=== PATIENT | female | born 1980 | race Caucasian/White ===

== ENCOUNTER → 2019-05-29 10:35 | Outpatient (CLI) | payer OTHER, SELFPAY ==
--- NOTE | ~2019-05-29 | MM_ITS ---
EXAMINATION: MM screening [facility] BI w rashaad HISTORY: Screening mammogram TECHNIQUE: Craniocaudal and mediolateral oblique 3-D tomosynthesis images were obtained and synthetic 2-D images were generated. CAD analysis was submitted and interpreted. COMPARISON: 04/18/2018, 03/14/2011, 09/03/2007 BREAST PARENCHYMAL COMPOSITION: The breasts are heterogeneously dense, which may obscure small masses . FINDINGS: There is no evidence of suspicious mass, calcification, or architectural distortion to sugg est malignancy in either breast. There has been no suspicious interval change. IMPRESSION: 1. No mammographic evidence of malignancy. 2. Recommend routine screening mammography in one year. BI-RADS Category 1: Negative Reviewed, dictated and finalized at location A. 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
== END ==
PROVIDERS: Visit Provider Obstetrics & Gynecology
DX: Z12.31 Encounter for screening mammogram for malignant neoplasm of breast (principal)
CPT/HCPCS: 77063; 77067

== ENCOUNTER 2019-09-01 17:06 | Outpatient (CLI) | payer OTHER, SELFPAY ==
--- NOTE | ~2019-09-01 | XR_ITS ---
EXAMINATION: XR cervical spine 4-5V EXAM DATE: 09/01/2019 17:34 INDICATION: Paresthesia of upper limb. TECHNIQUE: Cervical spine frontal, lateral, lateral swimmers, and open-mouth odontoid projections. There is no prior study for comparison. FINDINGS: There is no evidence of acute cervical fracture. The odontoid process is intact. Pre-dens space is normal. Prevertebral soft tissue is normal. There are no soft tissue abnormalities identi fied. The vertebral bodies are aligned. Vertebral body and disc heights are well-maintained. No more than minimal arthropathy. IMPRESSION: Minimal cervical arthropathy. Reviewed, dictated and finalized at location A.
--- NOTE | ~2019-09-01 | XR_ITS ---
EXAMINATION: XR lumbar spine 2-3V EXAM DATE: 09/01/2019 17:34 INDICATION: Paresthesia of upper limb. Lumbar pain. TECHNIQUE: Lumber spine frontal, lateral, lateral L5-S1 projections for interpretation. Comparison is made to prior examination from 12/11/2007. FINDINGS: Minimal thoracolumbar disc disease. Mild lower lumbar facet arthropathy. The vertebral bod ies are aligned in the AP dimension. Vertebral body heights are maintained. Paraspinal soft tissue is unremarkable. There is IUD projecting over the central aspect of the pelvis. Calcifications in the p jose manuel are believed to be phleboliths. IMPRESSION: Mild lower lumbar facet arthropathy. Reviewed, dictated and finalized at location A.
== END 2019-09-01 17:07 | disposition home or self-care (01) ==
LOC: ANHIMG 17:12
PROVIDERS: PCP Nurse Practitioner Family; Visit Provider Nurse Practitioner Family
DX: R20.2 Paresthesia of skin (principal); M54.5 Low back pain; M12.88 Other specific arthropathies, not elsewhere classified, other specified site
CPT/HCPCS: 72050; 72100

== ENCOUNTER → 2020-01-15 12:28 | Outpatient (CLI) | payer OTHER, SELFPAY ==
--- NOTE | ~2020-01-15 | XR_ITS ---
EXAMINATION: XR hand RT min 3V, XR wrist RT min 3V EXAM DATE: 01/15/2020 13:01 INDICATION: No known recent injury provided at this time. Pain of the right hand, wrist. TECHNIQUE: Right hand frontal, lateral and oblique projections obtained and reviewed. Right wrist fro ntal, frontal with ulnar deviation, oblique and lateral projections obtained and reviewed. Correlatio n is made to contralateral hand wrist same date. FINDINGS: Right metacarpal bones are unremarkable. Right wrist scapholunate joint space is maintain ed. There are no bony erosions identified. There are no acute fractures or dislocations identified. There is no subcutaneous gas. The soft tissue is unremarkable. There are no radiopaque foreign mile dies. Joint spaces are uniform, and symmetric to the contralateral side. IMPRESSION: 1. Unremarkable right hand, wrist exam. Reviewed, dictated and finalized at location B. IMPRESSION: 1. Unremarkable right hand, wrist exam.
--- NOTE | ~2020-01-15 | XR_ITS ---
EXAMINATION: XR hand LT min 3V, XR wrist LT min 3V EXAM DATE: 01/15/2020 13:01 INDICATION: No known recent injury provided at this time. Pain of the hands and wrists bilaterally. TECHNIQUE: Left hand frontal, lateral and oblique projections obtained and reviewed. Left wrist fron irwin, frontal with ulnar deviation, oblique and lateral projections obtained and reviewed. There is n o prior study for comparison. FINDINGS: Left metacarpal bones are unremarkable. Left wrist scapholunate joint space is maintained . There are no bony erosions identified. There are no acute fractures or dislocations identified. T here is no subcutaneous gas. The soft tissue is unremarkable. There are no radiopaque foreign bodi es. IMPRESSION: 1. Unremarkable left hand, wrist exam. Reviewed, dictated and finalized at location B. IMPRESSION: 1. Unremarkable left hand, wrist exam.
== END ==
PROVIDERS: PCP Nurse Practitioner Family; Visit Provider Nurse Practitioner Family
DX: M25.531 Pain in right wrist (principal); M25.532 Pain in left wrist
CPT/HCPCS: 73110; 73130

== ENCOUNTER → 2020-07-29 11:22 | Outpatient (CLI) | payer OTHER, SELFPAY ==
--- NOTE | ~2020-07-29 | MM_ITS ---
EXAMINATION: MM screening [facility] BI w rashaad HISTORY: Screening mammogram TECHNIQUE: Craniocaudal and mediolateral oblique 3-D tomosynthesis images were obtained and synthetic 2-D images were generated. CAD analysis was submitted and interpreted. COMPARISON: 05/29/2019, 04/18/2018, 03/11 2011 bilateral digital screening mammogram examinations BREAST PARENCHYMAL COMPOSITION: The breasts are heterogeneously dense, which may obscure small masses . FINDINGS: There is a subtle microcalcifications in the central left breast. Diagnostic left mammogram with magnification views is recommended. Otherwise there is no evidence of suspicious mass, calcification, or architectural distortion to sug gest malignancy in either breast. There has been no other suspicious interval change. IMPRESSION: 1. Subtle microcalcifications, left breast 2. Diagnostic left mammogram with magnification views is recommended BI-RADS Category 0: Incomplete: Needs additional imaging evaluation. Reviewed, dictated and finalized at location A.
== END ==
PROVIDERS: Visit Provider Obstetrics & Gynecology
DX: Z12.31 Encounter for screening mammogram for malignant neoplasm of breast (principal); R92.8 Other abnormal and inconclusive findings on diagnostic imaging of breast
CPT/HCPCS: 77063; 77067

== ENCOUNTER → 2020-08-23 08:39 | Outpatient (CLI) | payer OTHER, SELFPAY ==
--- NOTE | ~2020-08-23 | MMUS_ITS ---
EXAMINATION: MM diagnostic mammo unilat LT, US breast LT complete HISTORY: Follow-up left breast calcifications TECHNIQUE: Additional 3-D tomosynthesis images of the left breast were performed and synthetic 2-D im ages were generated. CAD analysis was submitted and interpreted. High resolution complete left breast ultrasound was performed. COMPARISON: 07/29/2020 BREAST PARENCHYMAL COMPOSITION: The breasts are extremely dense, which lowers the sensitivity of mamm ography. FINDINGS: MAMMOGRAPHIC FINDINGS: There are no suspicious masses, calcifications or architectural distortion in the left breast to sugg est malignancy. There are a few scattered benign-appearing calcifications. ULTRASOUND: Left breast ultrasound, complete: Normal left breast echotexture without focal solid or cystic mass. In the left axilla in the area of described axillary swelling there are normal-appearing lymph nodes, largest measuring 1.2 cm with normal fatty hilum. No suspicious masses to suggest malignancy. IMPRESSION: 1. No evidence for malignancy in the left breast. Benign findings. 2. Routine yearly screening mammogram and regular clinical breast examination are recommended. BI-RADS Category 2: Benign finding(s). Reviewed, dictated and finalized at location A. IMPRESSION: 1. No evidence for malignancy in the left breast. Benign findings. 2. Routine yearly screening mammogram and regular clinical breast examination a re recommended. BI-RADS Category 2: Benign finding(s).
== END ==
PROVIDERS: PCP Nurse Practitioner Family; Visit Provider Obstetrics & Gynecology
DX: R92.8 Other abnormal and inconclusive findings on diagnostic imaging of breast (principal)
CPT/HCPCS: 76641; 77065

== ENCOUNTER 2020-11-02 09:11 | Emergency (ER) | payer OTHER, SELFPAY ==
--- NOTE | ~2020-11-02 | XR_ITS ---
EXAMINATION: XR barium swallow EXAM DATE: 11/02/2020 10:34 INDICATION: Chest pain, hemoptysis, epigastric pain. TECHNIQUE: Standard thick followed by thin contrast barium esophagram examination was performed by Dr Zoran Higgins, radiologist. Pulsed dose reduction fluoroscopy was used with fluoroscopic time of 0.6 minutes. The DAP for this procedure was 0.5 Gycm2. A total of 109 images obtained for the exam. T here is no prior study for comparison. FINDINGS: The pharynx is symmetric and without evidence of mass lesion or mucosal irregularity. Ther e is no esophageal stricture or mass identified. There are no esophageal diverticula. Gastroesophag eal junction is normal in appearance. IMPRESSION: Normal exam. Reviewed, dictated and finalized at location A. IMPRESSION: Normal exam.
--- NOTE | ~2020-11-02 | XR_ITS ---
EXAMINATION: XR chest 1V portable EXAM DATE: 11/02/2020 11:28 INDICATION: Productive cough. TECHNIQUE: Portable AP frontal chest x-ray was obtained. Comparison is made to prior examination from 07/18/2018. FINDINGS: The lungs are clear. There are no pleural effusions. The cardiomediastinal silhouette is within normal limits. There is no pneumothorax suspected. The bones and soft tissues are unremarkab le. IMPRESSION: No acute cardiopulmonary findings. Reviewed, dictated and finalized at location A.
[2020-11-02 09:19] VITALS: BP 137/78; PULSE 66; RESP 16; TEMP 36.2; O2SAT 100
[2020-11-02 09:49] VITALS: BP 132/88; PULSE 74; RESP 18; O2SAT 100
--- NOTE | 2020-11-02 09:57 | ED.GENADULT ---
HPI - General Adult General Chief complaint: Abdominal Pain Stated complaint: DIFF SWALLOWING, EPIGASTRIC PAIN Time Seen by Provider: 11/02/20 09:24 Source: patient and RN notes reviewed Mode of arrival: ambulatory Limitations: no limitations History of Present Illness HPI narrative: Patient is a 40-year-old female who presents to emergency department for evaluation of pain with swallowing began this morning over the last couple of months she has noticed that she has had some discomfort with swallowing this morning she notes that she has tasted some blood which she believes could be from her esophagus. Patient notes history of rheumatoid arthritis and notes that her medications have put her at risk for ulceration. Patient denies any melena rectal bleeding or URI symptoms. She months mild discomfort in the upper mid chest and epigastrium. She took Pepcid prior to arrival. Related Data Home Medications Medication Instructions Recorded Confirmed celecoxib [Celebrex] 200 mg PO BID 11/02/20 escitalopram oxalate [Lexapro] 10 mg PO DAILY 11/02/20 golimumab [Simponi ARIA] 125 mg IV ONCE 11/02/20 pilocarpine HCl 7.5 mg PO ONCE 11/02/20 prednisone 10 mg PO DAILY 11/02/20 Allergies Allergy/AdvReac Type Severity Reaction Status Date / Time No Known Allergies Allergy Verified 11/02/20 09:35 Review of Systems Review of Systems: All systems reviewed & are unremarkable except as noted in HPI and below PMFSH Past Medical History Medical History (Updated 11/02/20 @ 11:59 by Jc Jordan PA-C) Rheumatoid arthritis Surgical History Surgical History H/O colonoscopy Family History Family History (Updated 12/17/13 @ 07:13 by DOCTOR UNKNOWN) Father Family history of rheumatoid arthritis Family history of lung cancer Grandparent Family history of lung cancer Family history of rheumatoid arthritis Other Family history of alcoholism Family history of arthritis Family history of pancreatic cancer Social History Social History Smoking status: Former smoker Smoking end date: 04/22/99 Alcohol intake: current Exam Narrative: Exam Narrative: GENERAL: Well-appearing, well-nourished, and in no acute distress. HEAD: Normocephalic, atraumatic. EYES: PERRLA and EOMI. ENT: Nares clear, no rhinorrhea or epistaxis. Mucous membranes moist. CHEST: Clear to auscultation. No respiratory distress. No wheezes rales or rhonchi HEART: Regular rate and rhythm. No murmur heard. Normal peripheral pulses. ABDOMEN: Soft, mild epigastric tenderness no rebound or guarding, nondistended, normal active bowel sounds. EXTREMITIES: Normal range of motion. No edema. SKIN: Warm, dry, no rash. NEURO: No focal deficits. Alert and oriented x3. PSYCH: Normal mood and affect. Course Course Emergency Course: Patient evaluated in the emergency department for dysphagia and possible esophageal complication. ABCs and vital signs intact and stable patient aware of her case findings treatment plan diagnosis she notes she will begin taking omeprazole. And she will follow up with her chassis inspector will return if symptoms worsen. 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
[2020-11-02] MEDS: PANTOPRAZOLE SODIUM IV 40 MG VIAL IV PUSH (10:04)
[2020-11-02] MEDS: SODIUM CHLORIDE 0.9% IV 1,000 ML 999 ML IV CONT (10:04)
[2020-11-02 10:14] LABS: Basophils Absolute Auto 0.1 K/mm3 (0.0-0.1); Basophils Percent Auto 0.8 % (0.2-1.2); Eosinophils Absolute Auto 0.1 K/mm3 (0-0.3); Eosinophils Percent Auto 0.5 % (0-4.4); Hematocrit 47.7 % (37.0-47.0); Immature Granulocyte Absolute 0.03 K/mm3 (0.00-0.031); Immature Granulocyte Percent A 0.3 % (0-0.5); Lymphocytes Absolute Auto 1.84 K/mm3 (0.9-3.2); Lymphocytes Percent Auto 18.2 % (18.3-44.2); Mean Corpuscular HGB Conc 33.5 g/dl (32-36); Mean Corpuscular Hemoglobin 31.7 pg (26-34); Mean Corpuscular Volume 94.6 fl (80-100); Monocytes Absolute Auto 0.7 K/mm3 (0.1-0.6); Monocytes Percent Auto 7.3 % (2.6-8.5); Neutrophils Absolute Auto 7.4 K/mm3 (1.3-6.7); Neutrophils Percent Auto 72.9 % (45.5-73.1); Platelet Count Result 362 k/mm3 (150-375); Red Blood Count 5.04 M/mm3 (4.2-5.4); Red Cell Distribution Width 13.2 % (11.5-14.5); White Blood Count 10.1 K/mm3 (4.5-10.0)
[2020-11-02 10:16] LABS: Add Urine Microscopic? NO; Appearance Urine Clear (Clear); Bilirubin Urine Negative (Negative); Blood Urine Negative (Negative); Color Urine Colorless (Yellow); Glucose Urine UA Negative (Negative); Ketones Urine Negative (Negative); Leukocyte Esterase Ur Negative LEU/UL (Negative); Nitrate Urine Negative (Negative); Protein Urine Negative (Negative); Urobilinogen Urine Negative mg/dL (<2.0)
[2020-11-02 10:24] LABS: Alanine Aminotransferase 24 U/L (4-35); Albumin Level 4.9 g/dL (3.5-5.1); Alkaline Phosphatase 58 U/L (38-126); Anion Gap 10 mmol/L (8-16); Aspartate Amino Transferase 35 U/L (14-36); Bilirubin,Total 0.5 mg/dL (0.2-1.3); Blood Urea Nitrogen 9 mg/dL (7-17); Calcium 9.9 mg/dL (8.4-10.2); Carbon Dioxide 26 mmol/L (22-30); Chloride 102 mmol/L (98-107); Estimated CRCL calculation 88 ml/min; Estimated Glomerular Filt Rate > 60; Glucose 92 mg/dL (65-105); Lipase 119 U/L (23-300); Potassium 3.8 mmol/L (3.4-5.0); Sodium 138 mmol/L (137-145)
[2020-11-02 10:25] LABS: Specific Grav Ur 1.003 (1.001-1.035)
[2020-11-02 11:08] VITALS: BP 122/75; PULSE 63; RESP 18; O2SAT 97
[2020-11-02 12:13] VITALS: BP 141/83; PULSE 78; RESP 20; O2SAT 98
== END 2020-11-02 12:17 | disposition home or self-care (01) ==
PROVIDERS: Emergency Medicine Emergency Medical Services; Emergency Provider Emergency Medicine; PCP Nurse Practitioner Family
DX: R13.10 Dysphagia, unspecified (principal); R04.2 Hemoptysis; M06.9 Rheumatoid arthritis, unspecified; Z87.891 Personal history of nicotine dependence
CPT/HCPCS: 36415; 71045; 74220; 80053; 81003; 81025; 83690; 85025; 96361; 96374; 99284; C9113; J7030

== ENCOUNTER 2020-11-22 00:54 | Day surgery (SDC) | payer OTHER, SELFPAY ==
[2020-11-16 15:15] VITALS: BMI 29.1
[2020-11-22 10:48] VITALS: BP 133/80; PULSE 64; RESP 18; TEMP 36.3; O2SAT 100; BMI 28.0
--- NOTE | 2020-11-22 11:02 | WPDGICN ---
Assessment and Plan Assessment and plan (1) Epigastric abdominal pain: Code(s): R10.13 - Epigastric pain Status: Acute Assessment and Plan: patient with relatively recent epigastric pain and dysphagia. Plan is for EGD to exclude gastritis or esophageal narrowing. Continuing PPI and avoiding nonsteroidal anti-inflammatory agents appear prudent initially. Further recommendations will be given after endoscopy. (2) Dysphagia: Code(s): R13.10 - Dysphagia, unspecified Status: Acute GI Consult Note Consult date/time: 11/22/20 11:02 HPI: Cheryle Zepeda is a 40 year old female Complains of epigastric pain dysphagia. Patient has underlying history of rheumatoid arthritis. She does receive infusion therapy but also requires Celebrex. Previously was on methotrexate. Patient reports over the last 1 month has had epigastric and substernal discomfort. She feels the taste of blood in her throat occasional regurgitation. Over the last month she has had some difficulty swallowing with food catching in the mid substernal portion of the chest. Barium swallow recently performed was unremarkable. Celebrex has been held on the concern of possible ulcer disease gastritis or esophagitis. patient presents today for an EGD. Review of Systems Review of Systems: All systems reviewed & are unremarkable except as noted in HPI and below PMFSH Past Medical History Medical History (Updated 11/22/20 @ 11:05 by Edward Renteria MD) Rheumatoid arthritis Surgical History Surgical History H/O colonoscopy Family History Family History (Updated 12/17/13 @ 07:13 by DOCTOR UNKNOWN) Father Family history of rheumatoid arthritis Family history of lung cancer Grandparent Family history of lung cancer Family history of rheumatoid arthritis Other Family history of alcoholism Family history of arthritis Family history of pancreatic cancer Social History Social History Years smoked: 3 Smoking status: Former smoker Smoking end date: 04/22/99 Alcohol intake: current Drinks per week: 3 Substance use: never Substance use type: does not use Living arrangements: alone Spiritual care concerns: No Meds Home Medications and Allergies Home Medications Medication Instructions Recorded Confirmed Type celecoxib [Celebrex] 200 mg PO DAILY 11/02/20 11/16/20 History escitalopram oxalate [Lexapro] 10 mg PO DAILY 11/02/20 11/16/20 History golimumab [Simponi ARIA] 125 mg IV [id number] 11/02/20 11/16/20 History prednisone 10 mg PO DAILY PRN 11/02/20 11/16/20 History ryxpuoxv-znl-vgpp-FA-lutein 1 tablet PO DAILY 11/16/20 11/16/20 History [Centrum Silver Women] omeprazole 40 mg PO DAILY 11/16/20 11/16/20 History Allergies Allergy/AdvReac Type Severity Reaction Status Date / Time No Known Allergies Allergy Verified 11/22/20 10:43 Vital Signs Vital Signs - 24 hr 11/22/20 10:48 Temperature 97.3 F L Pulse Rate 64 Respiratory Rate 18 Blood Pressure 133/80 Pulse Oximetry 100 Exam Narrative: Physical exam reveals patient to be alert. Vital signs stable. HEENT exam is unremarkable. Patient is anicteric. Lungs are clear to auscultation and percussion. Heart is without murmur or extra sounds. Abdominal exam bowel sounds are present soft nontender with no organomegaly.
[2020-11-22] MEDS: LACTATED RINGERS 1,000 ML 150 ML IV CONT (11:03)
--- NOTE | 2020-11-22 11:11 | WPDANESEPPF ---
Anes - Initial Pre Proc Eval Procedure: Operation Date: 11/22/20 12:00 Proposed Procedures p Esophagogastroduodenoscopy - Edward Renteria MD Date/Time: 11/22/20 11:11 Surgeon: Edward Renteria MD Pre Op Diagnosis: gastritis Patient Data Age: 40 Gender: F Height: 1.55 m Weight: 67.5 kg Last Vital Signs Temp 36.3 C L 11/22/20 10:48 Pulse 64 11/22/20 10:48 Resp 18 11/22/20 10:48 BP 133/80 11/22/20 10:48 Pulse Ox 100 11/22/20 10:48 Allergies Allergy/AdvReac Type Severity Reaction Status Date / Time No Known Allergies Allergy Verified 11/22/20 10:43 Home Medications Medication Instructions Recorded Confirmed Type celecoxib [Celebrex] 200 mg PO DAILY 11/02/20 11/16/20 History escitalopram oxalate [Lexapro] 10 mg PO DAILY 11/02/20 11/16/20 History golimumab [Simponi ARIA] 125 mg IV [id number] 11/02/20 11/16/20 History prednisone 10 mg PO DAILY PRN 11/02/20 11/16/20 History reeflbyp-ivs-rhbx-FA-lutein 1 tablet PO DAILY 11/16/20 11/16/20 History [Centrum Silver Women] omeprazole 40 mg PO DAILY 11/16/20 11/16/20 History Patient hx anesthesia problems: none Family hx anesthesia problems: none PMFSH Past Medical History Medical History (Updated 11/22/20 @ 11:05 by Edward Renteria MD) Rheumatoid arthritis Surgical History Surgical History H/O colonoscopy Family History Family History (Updated 12/17/13 @ 07:13 by DOCTOR UNKNOWN) Father Family history of rheumatoid arthritis Family history of lung cancer Grandparent Family history of lung cancer Family history of rheumatoid arthritis Other Family history of alcoholism Family history of arthritis Family history of pancreatic cancer Social History Social History Years smoked: 3 Smoking status: Former smoker Smoking end date: 04/22/99 Alcohol intake: current Drinks per week: 3 Substance use: never Substance use type: does not use Living arrangements: alone Spiritual care concerns: No Anes - Eval Final PreProcedure Day of Procedure 11/22/20 11:11 Patient weight: overweight Heart: regular rate and rhythm Lungs: clear to auscultation and normal air movement Airway: Mallampati scale class II Neurological: alert and oriented Last oral intake: >/= 8 hours ASA classification: II Emergent: no Anesthetic plan: proceed Anesthesia type and monitoring: general GIVS Informed Consent: The patient's anesthetic plan and its attendant risks and benefits were discussed with the patient/family/POA. Questions were solicited and answers provided to the satisfaction of the patient/family/POA.
[2020-11-22 11:46] VITALS: BP 108/62; PULSE 67; RESP 24; O2SAT 100
[2020-11-22 11:56] VITALS: BP 125/78; PULSE 59; RESP 17; O2SAT 100
[2020-11-22 12:06] VITALS: BP 137/80; PULSE 53; RESP 17; O2SAT 100
== END 2020-11-22 12:16 | disposition home or self-care (01) ==
PROVIDERS: PCP Nurse Practitioner Family; Visit Provider Internal Medicine Gastroenterology
PROC: 0DJ08ZZ Inspection of Upper Intestinal Tract, Via Natural or Artificial Opening Endoscopic (ICD-10-PCS; CPT 43235; principal; 2020-11-22 12:00)
DX: R13.19 Other dysphagia (principal); R10.13 Epigastric pain; Z87.891 Personal history of nicotine dependence; M06.9 Rheumatoid arthritis, unspecified
CPT/HCPCS: 43239; 43450; 87081; J2704; J7120

== ENCOUNTER → 2023-02-08 11:20 | Outpatient (CLI) | payer OTHER, SELFPAY ==
--- NOTE | ~2023-02-08 | MM_ITS ---
EXAMINATION: MM screening [facility] BI w rashaad HISTORY: Screening TECHNIQUE: Craniocaudal and mediolateral oblique 3-D tomosynthesis images were obtained and synthetic 2-D images were generated. CAD analysis was submitted and interpreted. COMPARISON: Comparison to multiple prior studies sequentially, with oldest reviewed study dated 03/23. BREAST PARENCHYMAL COMPOSITION: The breasts are heterogeneously dense, which may obscure small masses FINDINGS: There is no evidence of suspicious mass, calcification, or architectural distortion to sugg est malignancy in either breast. There has been no suspicious interval change. IMPRESSION: 1. No mammographic evidence of malignancy. 2. Recommend routine screening mammography in one year. BI-RADS Category 1: Negative Reviewed, dictated and finalized at location A.
== END ==
PROVIDERS: PCP Nurse Practitioner Adult Health; Visit Provider Obstetrics & Gynecology
DX: Z12.31 Encounter for screening mammogram for malignant neoplasm of breast (principal)
CPT/HCPCS: 77063; 77067

== ENCOUNTER 2023-07-01 10:24 | Outpatient (CLI) | payer OTHER, SELFPAY ==
--- NOTE | ~2023-07-01 | XR_ITS ---
EXAMINATION: XR chest 2V DATE: 07/01/2023 10:39 INDICATION: Bronchitis, not specified as acute or chronic. TECHNIQUE: Frontal and lateral views of the chest were obtained. COMPARISON: Chest single view 09/20/2022 FINDINGS: There is no pneumonia, pleural effusion, or pneumothorax. The heart size is normal. Surgica l clips in the right upper quadrant are likely from cholecystectomy. IMPRESSION: 1. No acute cardiopulmonary disease. Reviewed, dictated and finalized at location A.
== END 2023-07-01 10:25 | disposition home or self-care (01) ==
LOC: ANHIMG 10:27
PROVIDERS: PCP Nurse Practitioner Family; Visit Provider Family Medicine
DX: J40 Bronchitis, not specified as acute or chronic (principal)
CPT/HCPCS: 71046

== ENCOUNTER 2023-10-21 06:59 | Outpatient (CLI) | payer OTHER, SELFPAY ==
[2023-10-21 19:40] LABS: Hematocrit 43.6 % (37.0-47.0); Hemoglobin 14.2 g/dL (12.0-15.0); Mean Corpuscular HGB Conc 32.6 g/dl (32-36); Mean Corpuscular Hemoglobin 31.8 pg (26-34); Mean Corpuscular Volume 97.5 fl (80-100); Mean Platelet Volume 9.4 fl (7.4-10.4); Platelet Count Result 426 k/mm3 (150-375); Red Blood Count 4.47 M/mm3 (4.2-5.4); Red Cell Distribution Width 13.3 % (11.5-14.5); White Blood Count 7.6 K/mm3 (4.5-10.0)
[2023-10-21 20:02] LABS: Vitamin D 25 Hydroxy 42.8 ng/mL
[2023-10-21 20:37] LABS: Erythrocyte Sedimentation Rate 6 mm/hr (0-20)
[2023-10-21 20:40] LABS: Alanine Aminotransferase 22 U/L (6-35); Albumin Level 4.7 g/dL (3.5-5.1); Alkaline Phosphatase 60 U/L (38-126); Anion Gap 6 mmol/L (4-12); Aspartate Amino Transferase 84 U/L (14-36); Bilirubin,Total 0.9 mg/dL (0.2-1.3); Blood Urea Nitrogen 11 mg/dL (7-17); Calcium 9.7 mg/dL (8.4-10.2); Carbon Dioxide 28 mmol/L (22-30); Chloride 102 mmol/L (98-107); Cholesterol 176 mg/dL (0-200); Estimated Glomerular Filt Rate > 60; Glucose 84 mg/dL (65-110); HDL Direct 86 mg/dL; Sodium 136 mmol/L (137-145); Triglycerides 85 mg/dL (<150)
[2023-10-21 20:51] LABS: LDL Cholesterol Direct 78 mg/dL
[2023-10-21 20:52] LABS: Hemoglobin A1C 4.7 % (<5.7)
== END 2023-10-21 07:00 | disposition home or self-care (01) ==
PROVIDERS: PCP Nurse Practitioner Family; Visit Provider Nurse Practitioner Family
DX: Z13.0 Encounter for screening for diseases of the blood and blood-forming organs and certain disorders involving the immune mechanism (principal); Z13.1 Encounter for screening for diabetes mellitus; Z13.220 Encounter for screening for lipoid disorders; E55.9 Vitamin D deficiency, unspecified; I01.1 Acute rheumatic endocarditis; Z13.29 Encounter for screening for other suspected endocrine disorder
CPT/HCPCS: 36415; 80053; 80061; 82306; 83036; 84443; 85027; 85652

== ENCOUNTER 2024-02-14 10:08 | Outpatient (CLI) | payer OTHER, SELFPAY ==
--- NOTE | ~2024-02-14 | MM_ITS ---
EXAMINATION: MM screening [facility] BI w rashaad HISTORY: Screening TECHNIQUE: Craniocaudal and mediolateral oblique 3-D tomosynthesis images were obtained and synthetic 2-D images were generated. CAD analysis was submitted and interpreted. COMPARISON: Comparison to multiple prior studies sequentially, with oldest reviewed study dated 12/2020. BREAST PARENCHYMAL COMPOSITION: Dense: The breasts are heterogeneously dense, which may obscure small masses FINDINGS: There is a developing asymmetry medial aspect of the left breast on CC view, middle third. The right breast is stable without evidence for malignancy. IMPRESSION: 1. Developing left breast asymmetry. 2. Additional mammographic views and possible breast ultrasound are recommended. BI-RADS Category 0: Incomplete: Needs additional imaging evaluation. Reviewed, dictated and finalized at location B. IMPRESSION: 1. Developing left breast asymmetry. 2. Additional mammographic views and possible breast ultrasound are recommended . BI-RADS Category 0: Incomplete: Needs additional imaging evaluation.
== END 2024-02-14 10:09 | disposition home or self-care (01) ==
PROVIDERS: PCP Obstetrics & Gynecology; Visit Provider Obstetrics & Gynecology
DX: Z12.31 Encounter for screening mammogram for malignant neoplasm of breast (principal); R92.8 Other abnormal and inconclusive findings on diagnostic imaging of breast
CPT/HCPCS: 77063; 77067

== ENCOUNTER 2024-03-06 10:19 | Outpatient (CLI) | payer OTHER, SELFPAY ==
--- NOTE | ~2024-03-06 | MM_ITS ---
EXAMINATION: MM diagnostic [facility] LT w rashaad HISTORY: Left breast asymmetry TECHNIQUE: Additional 3-D tomosynthesis images of the left breast were performed and synthetic 2-D im ages were generated. CAD analysis was submitted and interpreted. COMPARISON: 02/14/2024, 02/08/2023 BREAST PARENCHYMAL COMPOSITION:Dense: The breasts are heterogeneously dense, which may obscure small masses. FINDINGS: The left breast asymmetry effaces with spot compression. No persistent mass lesion or disto rtion seen. No suspicious microcalcifications. IMPRESSION: No mammographic evidence for malignancy. BI-RADS Category 1: Negative Reviewed, dictated and finalized at location . 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
== END 2024-03-06 10:20 | disposition home or self-care (01) ==
LOC: ANHIMG 10:20
PROVIDERS: PCP Obstetrics & Gynecology; Visit Provider Obstetrics & Gynecology
DX: R92.8 Other abnormal and inconclusive findings on diagnostic imaging of breast (principal)
CPT/HCPCS: 77061; 77065; G0279

== ENCOUNTER 2024-05-15 01:23 | Day surgery (SDC) | payer OTHER, SELFPAY ==
[2024-05-01 14:38] VITALS: BMI 25.4
[2024-05-15 10:09] VITALS: BP 107/73; PULSE 68; RESP 18; TEMP 36.7; O2SAT 100
[2024-05-15 10:15] LABS: BEDSIDEPREGUCG Negative (Negative)
--- NOTE | 2024-05-15 10:15 | P.PNAN_ITS ---
Anes - Initial Pre Proc Eval Procedure: Operation Date: 05/15/24 11:30 Proposed Procedures p Screening Colonoscopy - Bertram Ramirez MD Date/Time: 05/15/24 10:15 Surgeon: Bertram Ramirez MD Pre Op Diagnosis: Screening colon Patient Data Age: 44 Gender: F Height: 1.52 m Weight: 58.3 kg Last Vital Signs Temp 36.7 C 05/15/24 10:09 Pulse 68 05/15/24 10:09 Resp 18 05/15/24 10:09 BP 107/73 05/15/24 10:09 Pulse Ox 100 05/15/24 10:09 O2 Del Method Room Air 05/15/24 10:09 Allergies Allergy/AdvReac Type Severity Reaction Status Date / Time azithromycin AdvReac Mild Nausea and Verified 05/15/24 10:09 Vomiting Home Medications ?Medication ?Instructions ?Recorded ?Confirmed ?Type yywbsvpm-tlgs-xeab 8 mg-folic 400 1 tablet PO DAILY 11/16/20 05/01/24 History mcg-K 50 mcg-lutein 300 mcg tablet (Centrum Silver Women) docusate sodium 100 mg capsule 100 mg PO BID 10/18/23 05/01/24 History (Stool Softener) escitalopram oxalate 20 mg tablet 20 mg PO DAILY #90 tabs 10/18/23 05/01/24 Rx levonorgestrel (Mirena) 1 device intrauterine ONCE 10/18/23 05/01/24 History valacyclovir 1 gram tablet 1,000 mg PO Q12H #90 tabs 10/18/23 05/01/24 Rx aspirin 81 mg tablet,delayed 81 mg PO DAILY #90 tabs 10/22/23 05/01/24 Rx release bupropion HCl 150 mg 24 hr tablet, 150 mg PO QAM #90 tabs 12/19/23 05/01/24 Rx extended release (Wellbutrin XL) Laboratory Tests 05/15/24 10:12 POC Urine HCG, Qual Negative (Negative) Patient hx anesthesia problems: none Family hx anesthesia problems: none Results Review: All pre-operative results and documents have been reviewed as part of the pre- operative evaluation. [facility] Past Medical History Medical History (Updated 10/22/23 @ 07:31 by Gloria Ortiz APRN) Melanoma Hypercalcemia GLORIA (generalized anxiety disorder) Arthropathy Anxiety Rheumatoid arthritis Surgical History Surgical History H/O colonoscopy Family History Family History (Updated 10/18/23 @ 09:30 by Liv Butler MA) Father Family history of rheumatoid arthritis Family history of lung cancer Heart disease Grandparent Family history of lung cancer Family history of rheumatoid arthritis Mother Depression Thyroid disease Other Family history of alcoholism Family history of arthritis Family history of pancreatic cancer Social History Social History (Updated 10/18/23 @ 09:33 by Liv Butler MA) Years smoked: 2 Smoking status: Former smoker Tobacco type: cigarettes Smoking end date: 04/22/19 Alcohol intake: current Drinks per week: 2 Substance use: never Substance use type: does not use Do You Feel Safe in your Home?: Yes Lack of Transportation: No Lack of Food: Never True Current Housing: I Do Not Have Housing Concerned About Future Housing: No Difficulty Paying Gas/Electric Bills: No Difficulty Paying for Meds: No Currently Unemployed: No Education: Master's Degree or Higher Difficulty w/ Childcare or Family Care: No Living arrangements: with family Occupation/Education: occupation 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 Informed Consent: The patient's anesthetic plan and its attendant risks and benefits were discussed with the patient/family/POA. Questions were solicited and answers provided to the satisfaction of the patient/family/POA.
[2024-05-15] MEDS: LACTATED RINGERS 1,000 ML 150 ML IV CONT (10:21)
--- NOTE | 2024-05-15 10:43 | PM.HPGS ---
History of Present Illness History of Present Illness Consent: Risks, benefits, and alternatives have been discussed and questions answered. Patient agrees to proceed with procedure. Chief complaint: Screening colon Narrative: Cheryle Zepeda is a 44 year old female here for screening colonoscopy, had one about 10 years ago Review of Systems Review of Systems: All systems reviewed & are unremarkable except as noted in HPI and below PMFSH Past Medical History Medical History (Updated 05/15/24 @ 10:44 by Bertram Ramirez MD) Colon cancer screening Melanoma Hypercalcemia GLORIA (generalized anxiety disorder) Arthropathy Anxiety Rheumatoid arthritis Surgical History Surgical History H/O colonoscopy Family History Family History (Updated 10/18/23 @ 09:30 by Liv Butler MA) Father Family history of rheumatoid arthritis Family history of lung cancer Heart disease Grandparent Family history of lung cancer Family history of rheumatoid arthritis Mother Depression Thyroid disease Other Family history of alcoholism Family history of arthritis Family history of pancreatic cancer Social History Social History (Updated 10/18/23 @ 09:33 by Liv Butler MA) Years smoked: 2 Smoking status: Former smoker Tobacco type: cigarettes Smoking end date: 04/22/19 Alcohol intake: current Drinks per week: 2 Substance use: never Substance use type: does not use Do You Feel Safe in your Home?: Yes Lack of Transportation: No Lack of Food: Never True Current Housing: I Do Not Have Housing Concerned About Future Housing: No Difficulty Paying Gas/Electric Bills: No Difficulty Paying for Meds: No Currently Unemployed: No Education: Master's Degree or Higher Difficulty w/ Childcare or Family Care: No Living arrangements: with family Occupation/Education: occupation 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[employer] Gender identity (if verbalized by the patient): Female Spiritual care concerns: No Meds Home Medications and Allergies Home Medications ?Medication ?Instructions ?Recorded ?Confirmed ?Type iwhrihjd-raow-hqug 8 mg-folic 400 1 tablet PO DAILY 11/16/20 05/01/24 History mcg-K 50 mcg-lutein 300 mcg tablet (Centrum Silver Women) docusate sodium 100 mg capsule 100 mg PO BID 10/18/23 05/01/24 History (Stool Softener) escitalopram oxalate 20 mg tablet 20 mg PO DAILY #90 tabs 10/18/23 05/01/24 Rx levonorgestrel (Mirena) 1 device intrauterine ONCE 10/18/23 05/01/24 History valacyclovir 1 gram tablet 1,000 mg PO Q12H #90 tabs 10/18/23 05/01/24 Rx aspirin 81 mg tablet,delayed 81 mg PO DAILY #90 tabs 10/22/23 05/01/24 Rx release bupropion HCl 150 mg 24 hr tablet, 150 mg PO QAM #90 tabs 12/19/23 05/01/24 Rx extended release (Wellbutrin XL) Allergies Allergy/AdvReac Type Severity Reaction Status Date / Time azithromycin AdvReac Mild Nausea and Verified 05/15/24 10:09 Vomiting Vital Signs Vital Signs - 24 hr 05/15/24 10:09 Temperature 98.1 F Pulse Rate 68 Respiratory Rate 18 Blood Pressure 107/73 Pulse Oximetry 100 Oxygen Delivery Room Air Exam Const: General: comfortable and no acute distress HENMT: Face/Nose/Sinus: Normal nares present Eyes: General: appearance normal, both eyes and all related structures Neck: Neck: no JVD Resp: Auscultation: clear to auscultation bilaterally Cardio: Rate: regular rate Rhythm: regular rhythm GI: Inspection: non-distended GI Palp: Yes Soft to palpation Skin: General skin exam: normal color Neuro: General: gait normal Speech: normal speech Extrem: General: normal to inspection Psych: Mental Status: mental status grossly normal Assessment and Plan Assessment and plan (1) Colon cancer screening: Code(s): Z12.11 - Encounter for screening for malignant neoplasm of colon Status: Acute Assessment and Plan: colonoscopy
[2024-05-15 11:03] VITALS: BP 127/48; PULSE 66; RESP 21; O2SAT 100
[2024-05-15 11:13] VITALS: BP 104/66; PULSE 53; RESP 16; O2SAT 100
[2024-05-15 11:23] VITALS: BP 109/68; PULSE 53; RESP 20; O2SAT 100
== END 2024-05-15 11:33 | disposition home or self-care (01) ==
PROVIDERS: Anesthesiology; PCP Nurse Practitioner Family; Visit Provider Internal Medicine Gastroenterology
PROC: 0DJD8ZZ Inspection of Lower Intestinal Tract, Via Natural or Artificial Opening Endoscopic (ICD-10-PCS; CPT 45378; principal; 2024-05-15 11:30)
DX: Z12.11 Encounter for screening for malignant neoplasm of colon (principal); K64.8 Other hemorrhoids; E83.52 Hypercalcemia; F41.9 Anxiety disorder, unspecified; M06.9 Rheumatoid arthritis, unspecified; Z79.82 Long term (current) use of aspirin; Z87.891 Personal history of nicotine dependence; Z85.820 Personal history of malignant melanoma of skin; Z80.1 Family history of malignant neoplasm of trachea, bronchus and lung; Z80.0 Family history of malignant neoplasm of digestive organs; Z82.49 Family history of ischemic heart disease and other diseases of the circulatory system
CPT/HCPCS: 45378; J2003; J2704; J7120

== ENCOUNTER 2024-07-06 07:09 | Outpatient (CLI) | payer OTHER, SELFPAY ==
--- NOTE | ~2024-07-06 | XR_ITS ---
Right Forearm AP and lateral views of the right forearm were performed. Clinical History: Status post fall Findings: No fracture or dislocation is seen. Osseous alignment in anatomic. Joint spaces are prese rved. Soft tissues are unremarkable. Impression: Unremarkable exam. Reviewed, dictated and finalized at location . Impression: Unremarkable exam.
--- NOTE | ~2024-07-06 | XR_ITS ---
Left wrist Technique: PA, oblique, lateral, and ulnar deviation views were obtained. Clinical History: Pain Findings: Questionable minimal cortical step-off of the distal radius dorsally.. Osseous alignment is anatomic. Joint spaces are preserved. Soft tissues are unremarkable. Impression: Questionable nondisplaced very subtle transverse fracture the distal radius. Reviewed, dictated and finalized at location . Impression: Questionable nondisplaced very subtle transverse fracture the distal radius.
--- NOTE | ~2024-07-06 | XR_ITS ---
Right wrist Technique: PA, oblique, lateral, and ulnar deviation views were obtained. Clinical History: Pain Findings: No acute fracture or dislocation is seen. Osseous alignment is anatomic. Joint spaces are p reserved. Soft tissues are unremarkable. Impression: Unremarkable right wrist radiographs. Reviewed, dictated and finalized at location . Impression: Unremarkable right wrist radiographs.
--- OUTSIDE RECORDS SUMMARY | 2024-07-06 07:14 | XMS_ITS ---
Author Organization [facility] Address [address] [facility] [address] [place] [address] Care Team Providers Care Associate Merchandiser Name Role Phone Angel BOSTON, Gloria Primary Care Provider Unavail able ErasmoAlessandra Unavailable [phone] zzzzMigration, zzzzProvider Unavailable Unav ailable Allergies No Known Allergies REASON FOR VISIT [facility] Medications Medication SIG (Take, Route, Frequency, Duration) Notes Start Date End Date Status Lexapro 5 MG take 1 tablet (5 mg) by oral route once daily Oral 1 Active Vitamin D (Ergocalciferol) 64005 UNIT take 1 capsule (50,000 unit) by oral route once weekly for 30 days Oral 0.005779902652170 for 30 Active EQL [place] 3 Fish Oil 1000 MG prn Oral Active Encounters Encounter Location Date Provider Diagnosis [facility] [address] [facility] [address] [place] [address] 02/10/2023 zzzzProvider zzzzMigration Plan Of Treatment No Information Progress Notes * Cheryle ZEPEDA:1979 (44 yo F)Acc No.[id number]:02/10/2023 Patient: Linette Cheryle CUETO :1980 A ge:42 Y S ex:Female Address:[facility] [address] Subjective: * Chief Complaints: * E MR-Chinedu * Medical History: * Surgical History: S inus Surgery; [id number] cyst removal; 5180-14-90hdabishvajkagnq; 7480-38-20Ptmkuv Repair; 6294-04-04Djmmsoyg surgery; 2018-06-19 * Hospitalization/Major Diagno stic Procedure: * Family History: M igrated Family History: Crohn's Disease , Lung Cancer , lupus , Rheumatoid Arthritis , Thyroid Disorder . * Social History: M igrated Social History: M igrated Social History: :: Never smoker. * Medications: T akingVitamin D (Ergocalciferol) 32275 UNIT Capsule take 1 capsule (50,000 unit) by oral route once weekly for 30 days Oral [id number] EQL [place] 3 Fish Oil 1000 MG Capsule Delayed Release prn Oral Lexapro 5 MG Tablet take 1 tablet (5 mg) by oral route once daily Oral 1 Taking Vitamin D (Ergocalciferol) 67042 UNIT Capsule take 1 capsule (50,000 unit) by oral route once weekly for 30 days Oral 0.064304047231663 Taking EQL [place] 3 Fish Oil 1000 MG Capsule Delayed Release prn Oral Taking Lexapro 5 MG Tablet take 1 tablet (5 mg) by oral route once daily Oral 1 * Allergies: N .K.D.A.no[Allergies Verified] Objective: * Vitals: * Physical Examination: Assessment: Plan: * Treatment: * Procedure Codes: * * Date:
--- OUTSIDE RECORDS SUMMARY | 2024-07-06 07:14 | XMS_ITS | Patient Health Record ---
Author Organization [facility] Address [address] [facility] [address] [place] [address] Care Team Providers Care Microfilm Equipment Inspector Name Role Phone Angel BOSTON, Gloria Primary Care Provider Unavail able Alessandra Zimmerman Unavailable [phone] Allergies No Known Allergies Reason For Referral No Information Medications Medication SIG (Take, Route, Frequency, Duration) Notes Start Date End Date Status Lexapro 5 MG take 1 tablet (5 mg) by oral route once daily Oral 1 Active Vitamin D (Ergocalciferol) 58995 UNIT take 1 capsule (50,000 unit) by oral route once weekly for 30 days Oral [id number] for 30 Active EQL [place] 3 Fish Oil 1000 MG prn Oral Active Plan Of Treatment No Information Insurance Providers Payer Name Payer Address Payer Phone Subscriber Number Group Number Insured Name Patient Relationship to Insured Coverage Start Date Coverage End Date Aetna - Commercial [address] [place] [address] [id number] Cheryle Zepeda Self - patient is the insured 9 Aetna - Choice/OA [address] [place] [address] [id number] Cheryle Zepeda Self - patient is the insured Medical (General) History Surgical History Surgery Date(Month/Year) Sinus Surgery; 2018-06-19 Hernia Repair; 2018-06-19 cholecystectomy; 2018-06-19 Ovarian cyst removal; 2018-06-19 Shoulder surgery; 2018-06-19
--- OUTSIDE RECORDS SUMMARY | 2024-07-06 07:14 | XMS_ITS ---
Author Organization [facility] Address [address] [facility] [address] [place] [address] Care Team Providers Care Oil Gas And Pipe Tester Name Role Phone Angel BOSTON, Gloria Primary Care Provider Unavail able Erasmo Alessandra Unavailable [phone] zzzzMigration, zzzzProvider Unavailable Unav ailable REASON FOR VISIT EMR-Chinedu Encounters Encounter Location Date Provider Diagnosis [facility] [address] [facility] [address] [place] [address] 02/09/2023 zzzzProvider zzzzMigration Plan Of Treatment Medication Medication Name Sig Start Date Stop Date Notes Hydroxychloroquine Sulfate 200 MG 1 po b id with food Oral for 03/16/2019 04/15/2019 Methotrexate Sodium 2.5 MG take 4 tablet s by oral route once a week Oral [id number] 85 for 01/16/2019 04/16/2019 predniSONE 5 MG take 3 tablets by or al route QD for 5 days, 2 po daily for 5 days, 1 daily for 5 days Oral 1 for 11/27/2018 12/12/2018 DULoxetine HCl 30 MG take 1 capsule (30 mg) by oral route once daily for 30 days Oral 1 for 30 01/16/2019 05/16/2019 Folic Acid 1 MG take 1 tablet (1 mg) by oral route once daily for 30 days Oral 1 for 01/16/2019 07/15/2019 Progress Notes * Chreyle ZEPEDA:1979 (44 yo F)Acc No.[id number]:02/09/2023 Patient: Linette Cheryle CUETO :1980 A ge:42 Y S ex:Female Address:[address] [place], [place] [address], [address] * Refills Stop Folic Acid Tablet, 1 MG, Oral, 30, take 1 tablet (1 mg) by oral route once daily for 30 days, 1, 30 Stop Methotrexate Sodium Tablet, 2.5 MG, Oral, 20, take 4 tablets by oral route once a week, 0.19446270746735686819965, 30 Stop predniSONE Tablet, 5 MG, Oral, 30, take 3 tablets by oral route QD for 5 days, 2 po daily for 5 days, 1 daily for 5 days, 1, 15 Stop Hydroxychloroquine Sulfate Tablet, 200 MG, Oral, 60, 1 po bid with food, 30 Stop DULoxetine HCl Capsule Delayed Release Particles, 30 MG, Oral, 30, take 1 capsule (30 mg) by oral route once daily for 30 days, 1, 30 Stop predniSONE Tablet, 5 MG, Oral, 30, take 3 tablets by oral route QD for 5 days, 2 po daily for 5 days, 1 daily for 5 days, 1, 15 Stop predniSONE Tablet, 5 MG, Oral, 30, take 3 tablets by oral route QD for 5 days, 2 po daily for 5 days, 1 daily for 5 days, 1, 15 Stop Hydroxychloroquine Sulfate Tablet, 200 MG, Oral, 60, 1 po bid with food, 30 Stop Hydroxychloroquine Sulfate Tablet, 200 MG, Oral, 60, 1 po bid with food, 30 Subjective: * Chief Complaints: * E MR-Chinedu * Medical History: * Surgical History: * Hospitalization/Major Diagno stic Procedure: * Medications: Objective: * Vitals: * Physical Examination: Assessment: Plan: * Treatment: * Procedure Codes: * * Date:
== END 2024-07-06 07:10 | disposition home or self-care (01) ==
PROVIDERS: PCP Nurse Practitioner Family; Visit Provider Nurse Practitioner Adult Health
DX: R60.9 Edema, unspecified (principal); M25.531 Pain in right wrist; M25.532 Pain in left wrist; Y92.009 Unspecified place in unspecified non-institutional (private) residence as the place of occurrence of the external cause; W19.XXXA Unspecified fall, initial encounter; M79.631 Pain in right forearm; R93.6 Abnormal findings on diagnostic imaging of limbs
CPT/HCPCS: 73090; 73110

== ENCOUNTER 2024-11-24 13:14 | Outpatient (CLI) | payer OTHER, SELFPAY ==
--- NOTE | ~2024-11-24 | CT_ITS ---
CT of the Abdomen and Pelvis: Indication: Lymphadenopathy Technique: 2.5 mm axial scans were obtained through the abdomen and pelvis following intravenous adm inistration of 100 cc of Omnipaque 350. Dose reduction technique was used on this scan by utilizing a utomated exposure control and iterative reconstruction technique. The dose-length product (DLP) was 1 94.16 mGy-cm. Findings: Scans through the lung bases are unremarkable. The liver, spleen, pancreas, gallbladder, adrenals and kidneys are within normal limits. No evidence of aortic aneurysm. No lymphadenopathy. No bowel obstruction or bowel wall thickening. There is no evidence to suggest acute appendicitis. Images through the pelvis were performed. Urinary bladder unremarkable. No pelvic mass seen. IUD in p lace. No ascites. Impression: No significant abnormalities seen. No lymphadenopathy is seen. Reviewed, dictated and finalized at [facility]. Impression: No significant abnormalities seen. No lymphadenopathy is seen.
== END 2024-11-24 13:15 | disposition home or self-care (01) ==
PROVIDERS: PCP Nurse Practitioner Family; Visit Provider Nurse Practitioner Family
DX: R59.0 Localized enlarged lymph nodes (principal)
CPT/HCPCS: 74177; Q9967

== ENCOUNTER 2025-01-13 08:10 | Outpatient (CLI) | payer OTHER, SELFPAY ==
--- OUTSIDE RECORDS SUMMARY | 2025-01-13 08:24 | XMS_ITS | Patient Health Record ---
Author Organization [facility] Address [address] [facility] [address] [place] [address] Care Team Providers Care Material Worker Name Role Phone Angel BOSTON, Gloria Primary Care Provider Unavail able Alessandra Zimmerman Unavailable [phone] Allergies No Known Allergies Reason For Referral No Information Medications Medication SIG (Take, Route, Frequency, Duration) Notes Start Date End Date Status Lexapro 5 MG take 1 tablet (5 mg) by oral route once daily Oral 1 Active Vitamin D (Ergocalciferol) 40456 UNIT take 1 capsule (50,000 unit) by oral route once weekly for 30 days Oral [id number]; Duration: 30 Active EQL [place] 3 Fish Oil 1000 MG prn Oral Active Plan Of Treatment No Information Insurance Providers Payer Name Payer Address Payer Phone Subscriber Number Group Number Insured Name Patient Relationship to Insured Coverage Start Date Coverage End Date Aetna - Commercial [address] [place] [address] [id number] Cheryle Zepeda Self - patient is the insured 9 Aetna - Choice/OA [address] [place] [address] [id number] Cheryle Zepeda Self - patient is the insured Medical (General) History Surgical History Surgery Date(Month/Year) Sinus Surgery; 2018-06-19 Hernia Repair; 2018-06-19 cholecystectomy; 2018-06-19 Ovarian cyst removal; 2018-06-19 Shoulder surgery; 2018-06-19
[2025-01-13 19:08] LABS: Alanine Aminotransferase 49 U/L (6-35); Albumin Level 4.5 g/dL (3.5-5.1); Alkaline Phosphatase 50 U/L (38-126); Anion Gap 8 mmol/L (4-12); Aspartate Amino Transferase 66 U/L (14-36); Bilirubin,Total 0.5 mg/dL (0.2-1.3); Blood Urea Nitrogen 8 mg/dL (7-17); Calcium 9.2 mg/dL (8.4-10.2); Carbon Dioxide 26 mmol/L (22-30); Chloride 102 mmol/L (98-107); Estimated Glomerular Filt Rate > 60; Glucose 77 mg/dL (65-110); Potassium 4.1 mmol/L (3.4-5.0); Sodium 136 mmol/L (137-145); Total Protein 7.6 g/dL (6.3-8.2)
[2025-01-13 19:32] LABS: Hematocrit 40.0 % (37.0-47.0); Hemoglobin 12.8 g/dL (12.0-15.0); Immature Granulocyte Percent A 0.3 % (0-0.5); Lymphocytes Absolute Auto 1.75 K/mm3 (0.9-3.2); Mean Corpuscular HGB Conc 32.0 g/dl (32-36); Mean Corpuscular Hemoglobin 30.7 pg (26-34); Mean Corpuscular Volume 95.9 fl (80-100); Nucleated Red Blood Cells Absolute Auto 0.000 K/mm3 (0.0-0.012); Nucleated Red Blood Cells Perc 0.0 % (0.0-0.2); Platelet Count Result 407 k/mm3 (150-375); Red Blood Count 4.17 M/mm3 (4.2-5.4); White Blood Count 9.7 K/mm3 (4.5-10.0)
[2025-01-18 13:08] LABS: Albumin 4.2 g/dL (2.9-4.4); Alpha-1-Globulin 0.2 g/dL (0.0-0.4); Alpha-2-Globulin 0.6 g/dL (0.4-1.0); Gamma Globulin 1.0 g/dL (0.4-1.8); Immunoglobulin A, Qn 178 mg/dL (87-352); Immunoglobulin G, Qn 1151 mg/dL (586-1602); Immunoglobulin M, Qn 142 mg/dL (26-217)
== END 2025-01-13 08:11 | disposition home or self-care (01) ==
PROVIDERS: PCP Nurse Practitioner Family; Visit Provider Nurse Practitioner Family
DX: R59.0 Localized enlarged lymph nodes (principal)
CPT/HCPCS: 36415; 80053; 82784; 84155; 85025; 86334

== ENCOUNTER 2025-02-19 09:49 | Outpatient (CLI) | payer OTHER, SELFPAY ==
--- NOTE | ~2025-02-19 | MM_ITS ---
EXAMINATION: MM screening shweta BI w rashaad HISTORY: Screening TECHNIQUE: Craniocaudal and mediolateral oblique 3-D tomosynthesis images were obtained and synthetic 2-D images were generated. CAD analysis was submitted and interpreted. COMPARISON: Comparison to multiple prior studies sequentially, with oldest reviewed study dated 05/29/2019. BREAST PARENCHYMAL COMPOSITION: Dense: The breasts are extremely dense, which lowers the sensitivity of mammography. FINDINGS: There is no evidence of suspicious mass, calcification, or architectural distortion to suggest malignancy in either breast. There has been no suspicious interval change. IMPRESSION: 1. No mammographic evidence of malignancy. 2. Recommend routine screening mammography in one year. BI-RADS Category 1: Negative Reviewed, dictated and finalized at location B.
== END 2025-02-19 09:50 | disposition home or self-care (01) ==
PROVIDERS: PCP Obstetrics & Gynecology; Visit Provider Obstetrics & Gynecology
DX: Z12.31 Encounter for screening mammogram for malignant neoplasm of breast (principal)
CPT/HCPCS: 77063; 77067

== ENCOUNTER 2025-04-05 12:37 | Outpatient (CLI) | payer OTHER, SELFPAY ==
--- NOTE | ~2025-04-05 | US_ITS ---
EXAM/PROCEDURE: US soft tissue LE LT HISTORY: lymphadenopathy COMPARISON: None available. TECHNIQUE: Left groin ultrasound FINDINGS: In the area of concern, left groin region, 2 lymph nodes are identified with the largest measuring 1.1 x 0.7 x 0.3 cm. A second lymph node measures 0.9 x 0.6 x 0.3 cm. IMPRESSION: Nonpathologic size left groin lymph nodes. Correlate with follow-up clinical presentation and exam. If size of lymph nodes or patient's signs/symptoms do not resolve or worsen, repeat ultrasound or CT examination is recommended. Reviewed, dictated and finalized at location A. R TECHNICIAN IMPRESSION: Nonpathologic size left groin lymph nodes. Correlate with follow-up clinical presentation and exam. If size of lymph nodes or patient's signs/symp toms do not resolve or worsen, repeat ultrasound or CT examination is recommend ed.
--- NOTE | ~2025-04-05 | US_ITS ---
EXAM/PROCEDURE: US pelvic complete w TV HISTORY: R10.2 - Pelvic and perineal pain COMPARISON: None available. LMP: Uncertain TECHNIQUE: Pelvic ultrasound performed FINDINGS: The uterus measures 7.8 x 3.4 x 4.3 cm. An IUD is noted. Endometrial stripe: 3.1 mm 2 hypoechoic/isoechoic area seen in the uterus with the largest measuring 1.1 x 1.0 x 1.1 cm. Nabothian cysts also seen in the cervix. Right ovary: 2.9 x 2.4 x 1.8 cm. The right ovary appears normal in vascular flow. Hypoechoic area seen in the right ovary measuring 1.1 x 1.1 x 1.5 cm. Left ovary: 2.9 x 2.5 x 2.1 cm and normal in echotexture and vascular flow. No free fluid seen. IMPRESSION: 1. Both ovaries appear normal in vascular flow. 1.5 cm probable hemorrhagic cyst in the right ovary should be reevaluated with follow-up pelvic ultrasound in 6-8 weeks or sooner if clinically appropriate. 2. Mild fibroid changes in the uterus. 3. IUD appears appropriately positioned. Reviewed, dictated and finalized at location A. UNITY ASSISTANT IMPRESSION: 1. Both ovaries appear normal in vascular flow. 1.5 cm probable hemorrhagic cys t in the right ovary should be reevaluated with follow-up pelvic ultrasound in 6-8 weeks or sooner if clinically appropriate. 2. Mild fibroid changes in the uterus. 3. IUD appears appropriately positioned.
--- NOTE | ~2025-04-05 | US_ITS ---
EXAM/PROCEDURE: US soft tissue LE RT HISTORY: lymphadenopathy COMPARISON: None available. TECHNIQUE: Right groin ultrasound FINDINGS: In the palpable area of concern, 2 lymph nodes are identified with the largest measuring 2.0 x 1.2 x 0.3 cm. A second lymph node measures 1.1 x 0.3 x 0.5 cm. IMPRESSION: Nonpathologic size right groin lymph nodes. Correlate with follow-up clinical presentation and exam. If size of lymph nodes or patient's signs/symptoms do not resolve or worsen, repeat ultrasound or CT examination is recommended. Reviewed, dictated and finalized at location A. IONAL SUPPORT TEACHER IMPRESSION: Nonpathologic size right groin lymph nodes. Correlate with follow-u p clinical presentation and exam. If size of lymph nodes or patient's signs/sym ptoms do not resolve or worsen, repeat ultrasound or CT examination is recommen ded.
== END 2025-04-05 12:38 | disposition home or self-care (01) ==
PROVIDERS: PCP Nurse Practitioner Family
DX: R59.0 Localized enlarged lymph nodes (principal); R10.20 Pelvic and perineal pain unspecified side; D25.9 Leiomyoma of uterus, unspecified; Z97.5 Presence of (intrauterine) contraceptive device
CPT/HCPCS: 76830; 76856; 76882